=== PATIENT | male | born 1965 | race American Indian/Alaskan Native ===

== ENCOUNTER 2017-03-12 02:41 | Emergency (ER) | payer MEDICAID ==
--- NOTE | 2017-03-12 04:47 | XRay Report ---
FINAL REPORT EXAM: XR FOOT 3+V RT HISTORY: pain, swelling, unable to bear weight to R FT, GLF COMPARISONS: None. 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 Mild diffuse distal interphalangeal osteoarthrosis. Prominent dorsally projecting talar beak. No obvious coalition. No periosteal reaction, erosive arthropathy or acute fracture identified. Mild forefoot soft tissue swelling. IMPRESSION: Mild forefoot soft tissue swelling without evident acute osseous abnormality. Chronic findings are detailed above. Consider additional imaging for worsening/persistent symptoms.
--- NOTE | 2017-03-12 11:57 | Emergency Department Report ---
ED Lower Extremity HPI - General Chief Complaint: Extremity Injury, Lower Stated Complaint: RIGHT FOOT,KNEE PAIN Source: patient Mode of arrival: Ambulatory Limitations: No Limitations - History of Present Illness Initial Comments: 51 y/o nontoxic in appearance M presents today stating that he has a hx of heart disease/cardiomyopathy and pacemaker. He states that he was walking slowly when suddenly his right leg gave out on him and he fell and twisted his knee and ankle. He reports to swelling at the right ankle. He states that the pain increases with movement to a 10/10 in severity. He denies any numbness, tingling, any trauma to the head or LOC. No fever, chills, CP, headache, or dizziness. No reported low back pain, saddle anesthsia, or bladder/bowel incontinences. Pt has not tried anything for the pain at this time. NKDA. VEGA Complaint: knee injury, ankle injury (right) -: Sudden Injury: Knee: Right, Ankle: Right Place: home Severity: severe Severity scale (0 -10): 10 Improves With: immobilization Worsens With: weight bearing, movement Context: fall Associated Symptoms: swelling, unable to bear weight. denies: numbness, tingling - Related Data Previous Rx's Medication Instructions Recorded Last Taken Type Ibuprofen [Motrin] 600 mg PO Q8H PRN #40 tablet 08/19/15 Unknown Rx traMADol [Ultram] 50 mg PO Q6HR PRN #20 tablet 03/12/17 Unknown Rx Allergies Allergy/AdvReac Type Severity Reaction Status Date / Time No Known Allergies Allergy Verified 08/19/15 21:41 ED Review of Systems ROS: Stated complaint: RIGHT FOOT,KNEE PAIN Other details as noted in HPI Constitutional: denies: chills, fever Eyes: denies: eye pain, eye discharge, vision change ENT: denies: ear pain, throat pain Respiratory: denies: cough, shortness of breath, wheezing Cardiovascular: denies: chest pain, palpitations Gastrointestinal: denies: abdominal pain, nausea, diarrhea Musculoskeletal: joint swelling, arthralgia. denies: back pain Skin: other (swelling) Neurological: denies: headache, weakness, paresthesias Psychiatric: denies: anxiety, depression ED Past Medical Hx - Past Medical History Previous Medical History?: Yes Additional medical history: cardiomyopathy - Surgical History Past Surgical History?: No Hx Pacemaker: Yes - Social History Smoking Status: Never Smoker Substance Use Type: Alcohol - Medications Home Medications: Home Medications Medication Instructions Recorded Confirmed Last Taken Type Ibuprofen [Motrin] 600 mg PO Q8H PRN #40 tablet 08/19/15 Unknown Rx traMADol [Ultram] 50 mg PO Q6HR PRN #20 tablet 03/12/17 Unknown Rx ED Physical Exam - General Limitations: No Limitations General appearance: alert, in no apparent distress - Head Head exam: Present: atraumatic, normocephalic - Eye Eye exam: Present: normal appearance - ENT ENT exam: Present: mucous membranes moist - Neck Neck exam: Present: normal inspection - Respiratory Respiratory exam: Present: normal lung sounds bilaterally. Absent: respiratory distress - Cardiovascular Cardiovascular Exam: Present: regular rate, normal rhythm. Absent: systolic murmur, diastolic murmur, rubs, gallop - Extremities Exam Extremities exam: Present: other (pulses and sensation were WNL of the R LE- there was no gross deformity of the R LE (opposing joint L LE was unremarkable)) - Expanded Lower Extremity Exam Right Hip exam: Present: normal inspection (hx of trauma to the Right hip about 3 weeks ago, secondary to another fall was seen by a chiropacter for this issue), full ROM Upper Leg exam: Present: normal inspection, full ROM Knee exam: Present: full knee extension (there is TTP at the lateral aspect of the right knee, no pain at the patella and medially, no swelling noted, negative lachmans and stacy test) Ankle exam: Present: tenderness (ttp at the medial aspect of the right foot, 3/ 5 in strength with plantarflexion, mild redness and swelling) Foot/Toe exam: Present: swelling (noted at the distal aspect of the right foot, pt has limited movement of his toes secondary to the pain) Gait: Positive: observed and limited by pain - Back Exam Back exam: Present: normal inspection - Neurological Exam Neurological exam: Present: alert, oriented X3, CN II-XII intact - Expanded Neurological Exam Expanded Patient oriented to: Present: person, place, time Speech: Present: fluid speech Best Eye Response (Linnette): (4) open spontaneously Best Motor Response ([place]ette): (6) obeys commands Best Verbal Response (Honor): (5) oriented Linnette Total: 15 - Psychiatric Psychiatric exam: Present: normal affect, normal mood - Skin Skin exam: Present: other (mild redness and swelling noted at the R foot at the metarasal region (medial) and at the right patella (lateral)). Absent: rash ED Course Vital Signs 03/12/17 03/12/17 03/12/17 02:52 03:40 11:13 Temperature 98.2 F 98.2 F 98.1 F Pulse Rate 102 H 121 H Respiratory 20 18 16 Rate Blood Pressure 125/86 125/86 Blood Pressure 132/83 [Left] O2 Sat by Pulse 99 100 Oximetry 03/12/17 12:46 Temperature Pulse Rate 92 H Respiratory 20 Rate Blood Pressure Blood Pressure 122/75 [Left] O2 Sat by Pulse 97 Oximetry ED Lower Extremity MDM - EKG Data When compared to previous EKG there are: previous EKG unavailable 03/13/17 19:08 Rate: 91, sinus rhythm, LVH, anterior Q waves [place]:147 qrsd: 84 QT: 336 QTc: 414 [place]: P: 35 qrs: -30 T: 65 - Radiology Data Radiology results: report reviewed Right knee xray: unremarkable Right foot xray: mild forefoot soft tissue swelling without evident acute osseous abnormality. 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 mild diffuse distal interphalangeal OA. prominent dorsally projecting talar beak. - Medical Decision Making Case was discussed with Dr. York, who agrees with plan of care. Due to the HR fluctating and him having a pacemaker with cardiomyopathy we conducted a troponin T (negative) and EKG- which was not indicative of STEMI. Therefore, pt was discharged home with Ultram for the pain. He was educated about the importance of cardiology follow-up. HELLEN wrap of the right ankle and crutches were provided for the patient today. With a referral to see orthopedics for possible further imaging if needed. Pt was discharged in stable condition, alert and oriented, no resp distress, speaking in full sentences. Critical care attestation.: If time is entered above; I have spent that time in minutes in the direct care of this critically ill patient, excluding procedure time. ED Disposition Clinical Impression: Right ankle sprain Qualifiers: Encounter type: initial encounter Involved ligament of ankle: unspecified ligament Qualified Code(s): S93.401A - Sprain of unspecified ligament of right ankle, initial encounter Right knee pain Qualifiers: Chronicity: acute Qualified Code(s): M25.561 - Pain in right knee Disposition: DC-01 TO HOME OR SELFCARE Is pt being admited?: No Does the pt Need Aspirin: No Condition: Stable Instructions: Tramadol (By mouth), Osteoarthritis (ED), Arthralgia (ED), RICE Therapy (ED) Additional Instructions: rice= REST, ICE, COMPRESS AND ELEVATE the joint above the level of your heart. Please take probiotic with your pain medication. Please be advised that the pain medication may cause drowsniess do not take with driving or operating heavy machinery. Referral to Orthopedics provided for you today. If your knee pain continues it may require further imaging for a ligament issue, please follow-up with orthopedics within 3-5 days. 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 Please see your PCP within 1 week. Please return to the ER immediately if your presenting symptoms progress or worsen. Prescriptions: traMADol [Ultram] 50 mg PO Q6HR PRN #20 tablet PRN Reason: Pain Referrals: [facility] [Outside] - 3-5 Days [facility] [Outside] - 3-5 Days JOSE LUIS IRELAND MD [Staff Physician] - 3-5 Days AMARA MCNEAL MD [Primary Care Provider] - 3-5 Days ISHA GREEN MD [Staff Physician] - 3-5 Days Forms: Work/School Release Form(ED)
--- NOTE | 2017-03-12 12:16 | XRay Report ---
RIGHT KNEE, 3 views: History: Pain, injury. The bony architecture is intact without evidence of fracture or dislocation. No significant soft tissue abnormality is seen. Please note the images are erroneously labeled the left knee. IMPRESSION: Right knee within normal limits.
[2017-03-12 12:47] VITALS: BP 122/75
== END 2017-03-12 16:01 | disposition home or self-care (01) ==
LOC: ED 02:41
DX: S93.491A Sprain of other ligament of right ankle, initial encounter (principal); M25.561 Pain in right knee; Z95.818 Presence of other cardiac implants and grafts; X50.1XXA Overexertion from prolonged static or awkward postures, initial encounter; Y93.89 Activity, other specified; Y92.89 Other specified places as the place of occurrence of the external cause; Y99.8 Other external cause status
CPT/HCPCS: 36415; 84484; 93005; 93010